=== PATIENT | female | born 1945 | race Caucasian/White ===

== ENCOUNTER 2025-04-12 14:40 | Emergency (ER) | payer MEDICARE, SELFPAY ==
[2025-04-12] VITALS (7 sets, daily range): BP systolic 163–199; BP diastolic 71–109; PULSE 71–76; RESP 16; TEMP 36.7; O2SAT 95–97; BMI 38.2
--- NOTE | 2025-04-12 15:06 | W.ED.GENADLT ---
HPI - General Adult General: Chief complaint: General Medical Stated complaint: congestion, n/d, dizzy Time Seen by Provider: 04/12/25 14:54 History of Present Illness: 79-year-old female presents emergency room complaining of sinus congestion and dizziness. Patient self diagnosed as having had diverticulitis few days ago and it is resolved now she has not been taking any antibiotics. She states for about 5 days that she had abdominal discomfort lower abdomen that she related as diverticulitis cramping-like discomfort she had resolution of this 3 days ago and but is still having some loose stools and diarrhea. She has not had any hematochezia melena hematemesis or coffee-ground emesis no dysuria urgency or frequency no fever. Blood pressure on arrival noted to be markedly elevated. Associated symptoms: Deny chest pain, dyspnea or rash Related Data Home Medications ?Medication ?Instructions ?Recorded ?Confirmed cholecalciferol (vitamin D3) 50 50 mcg PO DAILY 04/12/25 04/12/25 mcg (2,000 unit) capsule (Vitamin D3) ibuprofen 200 mg tablet (Advil) 600 mg PO Q6H PRN Fever Or Pain 04/12/25 04/12/25 simethicone 125 mg capsule (Gas 125 mg PO DAILY PRN 04/12/25 04/12/25 Relief Extra Strength) Gastrointestinal Spasms Or Cramping Previous Rx's ?Medication ?Instructions ?Recorded cefdinir 300 mg capsule 300 mg PO BID 10 days #20 caps 04/12/25 metronidazole 500 mg tablet 500 mg PO BID 10 days #20 tabs 04/12/25 Allergies Allergy/AdvReac Type Severity Reaction Status Date / Time Iodinated Contrast Media Allergy Severe ALGY-Anaphy Unverified 04/12/25 16:10 laxis Milk Containing Products Allergy Severe ADR-Nausea Verified 04/12/25 15:51 (Dairy) ciprofloxacin (From Cipro) Allergy Unknown Verified 04/12/25 14:49 erythromycin base Allergy Unknown Verified 04/12/25 14:49 lorazepam (From Ativan) Allergy Unknown Verified 04/12/25 14:49 milk Allergy ADR-Nausea Verified 04/12/25 15:51 Penicillins Allergy Unknown Verified 04/12/25 14:49 soy Allergy ADR-Nausea Verified 04/12/25 15:51 Sulfa (Sulfonamide Allergy Unknown Verified 04/12/25 14:49 Antibiotics) Review of Systems Const: Denies: fever(s) or chills Card: Denies: chest pain Resp: Denies: dyspnea GI: Denies: abdominal pain : Denies: dysuria, urinary frequency or urinary urgency Musc: Denies: neck pain or back pain Skin/Breast: Denies: rash Physical Exam Const: COMMON NORMALS: no acute distress GENERAL APPEARANCE: cooperative and comfortable ORIENTATION/CONSCIOUSNESS: Yes awake, Yes oriented to person, Yes oriented to place and Yes oriented to time HENMT: COMMON NORMALS: normocephalic, atraumatic and hearing grossly normal bilaterally HEAD & SCALP: normocephalic and atraumatic Resp: COMMON NORMALS: normal respiratory effort, No retractions, No use of accessory muscles and clear to auscultation bilaterally AUSCULTATION: clear to auscultation bilaterally Cardio: COMMON NORMALS: regular rate, regular rhythm and No murmurs present (Cardio) RATE: regular rate RHYTHM: regular rhythm GI: COMMON NORMALS: Soft to palpation and No hepatosplenomegaly present AUSCULTATION: Yes normoactive bowel sounds PALPATION: Yes Soft to palpation, No Tenderness to palpation present (GI), No Guarding due to palpation present (GI) and Yes No hepatosplenomegaly present Extremity: COMMON NORMALS: normal to inspection, capillary refill normal, no clubbing, cyanosis or edema, no calf tenderness and no pedal edema Neuro: SENSORIUM/ORIENTATION: Yes oriented to person, Yes oriented to place and Yes oriented to time Skin: COMMON NORMALS: no rashes or lesions noted GENERAL SKIN EXAM: no rashes or lesions noted Course Vital Signs: Vital signs: Vital Signs Temperature 98.1 F 04/12/25 14:44 Pulse Rate 71 04/12/25 17:08 Respiratory Rate 16 04/12/25 14:44 Blood Pressure 168/71 04/12/25 17:08 Pulse Oximetry 95 04/12/25 17:08 Oxygen Delivery Me thod Room Air 04/12/25 15:13 MDM - General Adult Medical Decision Making No leukocytosis CT shows acute diverticulitis. Will start her on cefdinir and metronidazole due to allergies to other more frequently use medication combinations for diverticulitis. This also should cover any sinus issues she was, concerned about that as well follow-up with your primary care doctor Medical Records I reviewed the patient's medical records. Lab Data I reviewed the patient's lab results. 04/12/25 15:30 04/12/25 15:30 Radiology Impressions Abdomen/Pelvis CT 04/12/25 15:53 IMPRESSION: 1. Acute sigmoid colon diverticulitis, as described above. 2. Small volume free fluid within the pelvis. 3. Diffuse colonic diverticulosis. 4. Chronic findings. Laboratory Results WBC 9.50 10^3/uL (3.29-11.43) 04/12/25 15:30 RBC 4.63 10^6/uL (3.85-5.65) 04/12/25 15:30 Hgb 14.60 g/dL (11.27-16.99) 04/12/25 15:30 Hct 42.5 % (36-47) 04/12/25 15:30 MCV 91.8 fl (85-98) 04/12/25 15:30 MCH 31.5 pg (27-33) 04/12/25 15:30 MCHC 34.4 g/dL (30-55) 04/12/25 15:30 RDW 12.0 % (12.1-15.1) L 04/12/25 15:30 Plt Count 264 10^3/cmm (157-399) 04/12/25 15:30 MPV 9.9 fL (7.4-10.4) 04/12/25 15:30 Neut % (Auto) 64.1 % 04/12/25 15:30 Lymph % (Auto) 24.2 % 04/12/25 15:30 Coal % (Auto) 9.6 % 04/12/25 15:30 Eos % (Auto) 1.1 % 04/12/25 15:30 Baso % (Auto) 0.8 % 04/12/25 15:30 Neut # (Auto) 6.09 10^3/uL (1.8-7.7) 04/12/25 15:30 Lymph # (Auto) 2.3 10^3/uL (0.8-4.8) 04/12/25 15:30 Coal # (Auto) 0.9 10^3/uL (0.2-0.9) 04/12/25 15:30 Eos # (Auto) 0.1 10^3/uL (0.0-0.8) 04/12/25 15:30 Baso # (Auto) 0.1 10^3/uL (0.0-0.1) 04/12/25 15:30 Nucleated RBC % (auto) 0 % 04/12/25 15:30 Nucleated RBCs # 0.0 /100WBC 04/12/25 15:30 Sodium 145 mmol/L (136-145) 04/12/25 15:30 Potassium 3.6 mmol/L (3.5-5.1) 04/12/25 15:30 Chloride 105 mmol/L (98-107) 04/12/25 15:30 Carbon Dioxide 25 mmol/L (22-29) 04/12/25 15:30 Anion Gap 18.6 (5-19) 04/12/25 15:30 BUN 8 mg/dL (8-23) 04/12/25 15:30 Creatinine 0.5 mg/dL (0.5-0.9) 04/12/25 15:30 GFR Calculation Not Reportable 04/12/25 15:30 Glucose 95 mg/dL (65-115) 04/12/25 15:30 Calculated Osmolality 298 mOsm/kg (285-295) H 04/12/25 15:30 Calcium 9.1 mg/dL (8.5-10.5) 04/12/25 15:30 Total Bilirubin 0.6 mg/dL (0.15-1.2) 04/12/25 15:30 AST 14 U/L (0-32) 04/12/25 15:30 ALT 14 U/L (0-33) 04/12/25 15:30 Alkaline Phosphatase 77 U/L (35-105) 04/12/25 15:30 Total Protein 7.5 g/dL (6.6-8.7) 04/12/25 15:30 Albumin 4.0 g/dL (3.5-5.2) 04/12/25 15:30 Globulin 3.5 g/dL (1.3-4.6) 04/12/25 15:30 Lipase 20 U/L (13-60) 04/12/25 15:30 Urine Color Yellow (Yellow) 04/12/25 15:10 Urine Appearance Clear (CLEAR) 04/12/25 15:10 Urine pH 6.0 (5-7) 04/12/25 15:10 Ur Specific [place] 1.006 (1.005-1.030) 04/12/25 15:10 Urine Protein Negative (Negative) 04/12/25 15:10 Urine Glucose (UA) Negative (Normal) 04/12/25 15:10 Urine Ketones Trace (Negative) 04/12/25 15:10 Urine Blood Negative (Negative) 04/12/25 15:10 Urine Nitrate Negative (Negative) 04/12/25 15:10 Urine Bilirubin Negative (Negative) 04/12/25 15:10 Urine Urobilinogen 0.2 mg/dL (Negative) 04/12/25 15:10 Ur Leukocyte Esterase Negative (Negative) 04/12/25 15:10 Urine RBC 0-2 /hpf (0-2) 04/12/25 15:10 Urine WBC 6-10 /hpf (0-5) 04/12/25 15:10 Ur Squamous Epith Cells 0-5 /hpf (0-5) 04/12/25 15:10 Amorphous Sediment Not Reportable 04/12/25 15:10 Urine Bacteria Trace /hpf (NONE) 04/12/25 15:10 Hyaline Casts 2.05 /lpf 04/12/25 15:10 All radiology interpretation(s) finalized by discharge Discharge Plan Discharge Patient Disposition: Home Clinical Impression: Diverticulitis Condition: Stable Prescriptions: New cefdinir 300 mg capsule 300 mg PO BID 10 Days Qty: 20 0RF metronidazole 500 mg tablet 500 mg PO BID 10 Days Qty: 20 0RF No Action simethicone [Gas Relief Extra Strength] 125 mg Capsule 125 mg PO DAILY PRN (Reason: Gastrointestinal Spasms Or Cramping) ibuprofen [Advil] 200 mg Tablet 600 mg PO Q6H PRN (Reason: Fever Or Pain) cholecalciferol (vitamin D3) [Vitamin D3] 50 mcg (2,000 unit) Capsule 50 mcg PO DAILY Discharge Orders: Discharge ED (Routine); Ordered 04/12/25 Ordered By: Liborio Adams Discharge Diet: Advance as tolerated Discharge Activity: Increase activity as tolerated Patient Instructions: Opioid Safety, Pain Management Activity Restrictions/Additional Instructions: Thank you for choosing [facility] for your healthcare needs today. It is very important that you follow up as instructed or that you return to the Emergency Department should you have concerns or if your condition changes or worsens in any way. You were seen in the emergency room for abdominal pain with diarrhea. CT shows that you have mild acute diverticulitis. Will start you on cefdinir 300 mg 1 pill twice a day as well as metronidazole 500 mg twice a day. Follow-up with your primary care provider. Print Language: Armenian Coding Level of Care Code ED Clinical Program Manager for Raghu López
[2025-04-12 15:18] LABS: Bilirubin Urine Negative (Negative); Blood Urine Negative (Negative); Glucose Urine UA Negative (Normal); Ketones Urine Trace (Negative); Leukocyte Esterase Urine Negative (Negative); Nitrate Urine Negative (Negative); Protein Urine Negative (Negative); Specific Gravity, Urine 1.006 (1.005-1.030); Urine Appearance Clear (CLEAR); Urine Color Yellow (Yellow); Urobilinogen Urine 0.2 mg/dL (Negative)
[2025-04-12 15:23] LABS: Add Urine Microscopic? YES; Bacteria Urine Trace /hpf; Hyaline Casts Urine 2.05 /lpf; RBC Urine 0-2 /hpf (0-2); Squamous Epithelial Cell Urine 0-5 /hpf (0-5)
[2025-04-12 15:28] LABS: Add Urine Culture? No
[2025-04-12 15:40] LABS: Basophils # 0.1 10^3/uL (0.0-0.1); Basophils % 0.8 %; Eosinophils # 0.1 10^3/uL (0.0-0.8); Eosinophils % 1.1 %; Hematocrit 42.5 % (36-47); Lymphocytes # 2.3 10^3/uL (0.8-4.8); Lymphocytes % 24.2 %; Mean Corpuscular HGB Conc 34.4 g/dL (30-55); Mean Corpuscular Hemoglobin 31.5 pg (27-33); Mean Corpuscular Volume 91.8 fl (85-98); Mean Platelet Volume 9.9 fL (7.4-10.4); Monocytes # 0.9 10^3/uL (0.2-0.9); Monocytes % 9.6 %; Neutrophils # 6.09 10^3/uL (1.8-7.7); Neutrophils % 64.1 %; Nucleated Red Blood Cells % 0 %; Platelet Count 264 10^3/cmm (157-399); Red Blood Count 4.63 10^6/uL (3.85-5.65)
[2025-04-12] MEDS: labetalol 5 mg/mL SDV 20mL 10 MG IVP (15:40)
[2025-04-12] MEDS: hyDRALAzine 20 mg/mL INJ 1 mL 10 MG IVP (15:40)
--- NOTE | 2025-04-12 15:53 | CTR_ITS ---
PROCEDURE INFORMATION: Exam: CT Abdomen And Pelvis Without Contrast Exam date and time: 04/12/2025 4:05 PM Age: 79 years old Clinical indication: Abdominal pain; Generalized; Prior surgery; Surgery date: 6+ months; Surgery type: Gb, appy, partial hysterectomy; Additional info: Abd pain TECHNIQUE: Imaging protocol: Computed tomography of the abdomen and pelvis without contrast. Radiation optimization: All CT scans at this facility use at least one of these dose optimization techniques: automated exposure control; mA and/or kV adjustment per patient size (includes targeted exams where dose is matched to clinical indication); or iterative reconstruction. COMPARISON: No relevant prior studies available. RADIATION DOSE METRICS: Total DLP (mGy-cm): 943.33 FINDINGS: Liver: Liver appears heterogeneous. Nonspecific finding suggesting potential hepatic parenchymal disease. Consider correlation with liver function tests. Gallbladder and biliary ducts: The gallbladder has been surgically removed. Surgical clips identified in the gallbladder fossa. No evidence for biliary dilatation. Pancreas: Unremarkable. Spleen: Unremarkable. No splenomegaly. Adrenal glands: Normal. No mass. Kidneys and ureters: Unremarkable. No hydronephrosis or calculi. Stomach and bowel: Findings typical of acute diverticulitis demonstrated within the sigmoid colon. Adjacent edema is demonstrated. No extraluminal gas or well defined abscess identified. Malignancy not excluded. Diffuse colonic diverticulosis is demonstrated. Appendix: The visualized appendix appears unremarkable. Intraperitoneal space: Moderate left-sided pelvic mesenteric edema. Small volume of intraperitoneal fluid identified in the bilateral pelvis. Vasculature: Calcifications in the pelvis, most compatible with phleboliths. Lymph nodes: No enlarged lymph nodes. Urinary bladder: Urinary bladder appears small in size, limiting further assessment. Reproductive: The uterus is not present. Bones/joints: Diffusely decreased bone density. Dextroscoliosis of the lumbar spine is demonstrated. Moderate to severe bony degenerative changes involving the lumbar spine region. Disc and osteophyte complexes with moderate to severe central canal and foraminal narrowing within the lumbar spine. Bony structures appear otherwise unremarkable. Soft tissues: Unremarkable. Other findings: This study is limited by patient's body habitus. CT/CT abdomen pelvis wo con [id number] IMPRESSION: 1. Acute sigmoid colon diverticulitis, as described above. 2. Small volume free fluid within the pelvis. 3. Diffuse colonic diverticulosis. 4. Chronic findings.
[2025-04-12 15:55] LABS: Alanine Aminotransferase 14 U/L (0-33); Alkaline Phosphatase 77 U/L (35-105); Anion Gap 18.6 (5-19); Aspartate Amino Transferase 14 U/L (0-32); Blood Urea Nitrogen 8 mg/dL (8-23); Calcium 9.1 mg/dL (8.5-10.5); Carbon Dioxide 25 mmol/L (22-29); Chloride 105 mmol/L (98-107); Creatinine Clr Calc Pharmacy 68.1279; Globulin 3.5 g/dL (1.3-4.6); Glucose 95 mg/dL (65-115); Lipase 20 U/L (13-60); Osmolality Calculated 298 mOsm/kg (285-295); Potassium 3.6 mmol/L (3.5-5.1); Sodium 145 mmol/L (136-145); Total Bilirubin 0.6 mg/dL (0.15-1.2); Total Protein 7.5 g/dL (6.6-8.7)
== END 2025-04-12 17:09 | disposition home or self-care (01) ==
PROVIDERS: Emergency Provider Family Medicine
DX: K57.32 Diverticulitis of large intestine without perforation or abscess without bleeding (principal); R09.81 Nasal congestion; Z88.1 Allergy status to other antibiotic agents; Z88.8 Allergy status to other drugs, medicaments and biological substances; Z91.041 Radiographic dye allergy status
CPT/HCPCS: 36415; 74176; 80053; 81001; 83690; 85025; 96374; 96375; 99285; J0360; J3490

== ENCOUNTER 2025-10-10 23:54 | Emergency (ER) | payer MEDICARE, SELFPAY ==
[2025-10-11 00:12] VITALS: BP 194/149; PULSE 145; RESP 18; TEMP 36.7; O2SAT 98; BMI 37.1
[2025-10-11 00:25] VITALS: BP 189/151; PULSE 131; RESP 19; O2SAT 97
--- NOTE | 2025-10-11 00:43 | XRR_ITS ---
PROCEDURE INFORMATION: Exam: XR Chest Exam date and time: 10/11/2025 12:47 AM Age: 80 years old Clinical indication: Other: Tachycardia TECHNIQUE: Imaging protocol: Radiologic exam of the chest. Views: 1 view. COMPARISON: CT abdomen pelvis con [id number] 04/12/2025 4:05 PM FINDINGS: Lungs: Unremarkable. No consolidation. Pleural spaces: Unremarkable. No pleural effusion. No pneumothorax. Heart/Mediastinum: Unremarkable. No cardiomegaly. Bones/joints: Unremarkable. XR/XR chest 1V portable [id number] IMPRESSION: No acute findings.
--- NOTE | 2025-10-11 00:43 | CTR_ITS ---
PROCEDURE INFORMATION: Exam: CT Head Without Contrast Exam date and time: 10/11/2025 12:58 AM Age: 80 years old Clinical indication: Numbness / parasthesia; Left; Additional info: L ue paresthesia TECHNIQUE: Imaging protocol: Computed tomography of the head without contrast. Radiation optimization: All CT scans at this facility use at least one of these dose optimization techniques: automated exposure control; mA and/or kV adjustment per patient size (includes targeted exams where dose is matched to clinical indication); or iterative reconstruction. COMPARISON: No relevant prior studies available. RADIATION DOSE METRICS: Total DLP (mGy-cm): 1094.52 FINDINGS: Brain: No acute intracranial hemorrhage. No midline shift or mass effect. No acute territorial infarct. Global age-related cerebral atrophy. Chronic, age related microangiopathy, consistent periventricular and subcortical white matter hypoattenuation. Cerebral ventricles: No ventriculomegaly. Paranasal sinuses: Visualized sinuses are unremarkable. No fluid levels. Mastoid air cells: Visualized mastoid air cells are well aerated. Bones: Unremarkable. No acute fracture. Soft tissues: Unremarkable. CT/CT head wo con* [id number] IMPRESSION: No acute intracranial hemorrhage. No midline shift or mass effect.
--- NOTE | 2025-10-11 00:44 | ECG_ITS ---
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 [email or web address]
[2025-10-11 00:50] LABS: Hematocrit 44.2 % (36-47); Hemoglobin 15.50 g/dL (11.27-16.99); Mean Corpuscular HGB Conc 35.1 g/dL (30-55); Mean Corpuscular Hemoglobin 33.0 pg (27-33); Mean Corpuscular Volume 94.2 fl (85-98); Nucleated Red Blood Cells % 0 %; Platelet Count 289 10^3/cmm (157-399); Red Blood Count 4.69 10^6/uL (3.85-5.65); White Blood Count 11.37 10^3/uL (3.29-11.43)
[2025-10-11] MEDS: digoxin 250 mcg/ml INJ 2 mL 125 MCG IVP ×2 (00:50→01:26)
[2025-10-11] MEDS: metoprolol tartrate 1 mg/1 mL SDV 5 mL 5 MG IVP ×2 (00:50→01:26)
[2025-10-11 00:52] LABS: Glucose Urine UA Negative (Normal); Nitrate Urine Negative (Negative); Specific Gravity, Urine 1.006 (1.005-1.030)
--- NOTE | 2025-10-11 00:53 | W.ED.EXTPRO ---
HPI - Extremity Problem General: Chief complaint: Extremity Problem,Nontraumatic Stated complaint: LT arm Numbness Time Seen by Provider: 10/11/25 00:04 History of Present Illness: Patient is a 80-year-old female presenting with complaints of left ear pain, neck pain, and intermittent numbness in her arm for the past 2 days. She reports that the numbness comes and goes, but she maintains full range of motion and functionality of the arm during these episodes. She denies any associated headache but does report sinus pain. Patient also notes an irregular heartbeat that she has experienced intermittently for approximately 20 years. She states that her heart rate at home typically ranges from 98-102 bpm, and the arrhythmia can last from one to three days at a time. The patient reports that her arrhythmia can be triggered by sneezing or reaching up with her arm, and sometimes resolves when she gets angry or with rest. She has a remote history of what was initially diagnosed as a TIA approximately 30 years ago, though she reports a subsequent physician suggested it may have been a migraine instead. Related Data Home Medications ?Medication ?Instructions ?Recorded ?Confirmed cholecalciferol (vitamin D3) 50 50 mcg PO DAILY 04/12/25 04/27/25 mcg (2,000 unit) capsule (Vitamin D3) ibuprofen 200 mg tablet (Advil) 600 mg PO Q6H PRN Fever Or Pain 04/12/25 04/27/25 simethicone 125 mg capsule (Gas 125 mg PO DAILY PRN 04/12/25 04/27/25 Relief Extra Strength) Gastrointestinal Spasms Or Cramping Previous Rx's ?Medication ?Instructions ?Recorded doxycycline hyclate 100 mg capsule 100 mg PO BID 7 days #14 caps 04/23/25 methylprednisolone 4 mg tablets in See Rx Instructions PO .COMPLEX 10/11/25 a dose pack (Medrol (Rob)) #21 ea metoprolol tartrate 50 mg tablet 50 mg PO Q12H #60 tabs 10/11/25 Allergies Allergy/AdvReac Type Severity Reaction Status Date / Time Iodinated Contrast Media Allergy Severe ALGY-Anaphy Verified 10/11/25 00:18 laxis Milk Containing Products Allergy Severe ADR-Nausea Verified 10/11/25 00:18 (Dairy) ciprofloxacin (From Cipro) Allergy Unknown Verified 10/11/25 00:18 erythromycin base Allergy Unknown Verified 10/11/25 00:18 lorazepam (From Ativan) Allergy Unknown Verified 10/11/25 00:18 milk Allergy ADR-Nausea Verified 10/11/25 00:18 Penicillins Allergy Unknown Verified 10/11/25 00:18 soy Allergy ADR-Nausea Verified 10/11/25 00:18 Sulfa (Sulfonamide Allergy Unknown Verified 10/11/25 00:18 Antibiotics) PFSH ED PFSH: Social History Smoking and tobacco/nicotine status: unknown if used tobacco/nicotine Physical Exam Const: COMMON NORMALS: no acute distress GENERAL APPEARANCE: cooperative; not ill appearing and not frail appearing HENMT: COMMON NORMALS: normocephalic, atraumatic and Normal external nose present HEAD & SCALP: normocephalic and atraumatic FACE & SINUS: normal facial exam and face symmetric NOSE: Normal external nose present Eye: COMMON NORMALS: Equal, round and reactive pupils present and EOMs intact bilaterally PUPIL: Yes Equal, round and reactive pupils present Neck/C-Spine: GENERAL: Yes trachea midline OTHER: Mild cervical spine tenderness. Negative Spurling's test. No deformity. Some left-sided paraspinal musculature tenderness Chest: CHEST: Yes Symmetrical chest wall rise Resp: COMMON NORMALS: normal respiratory effort, No retractions, No use of accessory muscles and clear to auscultation bilaterally AUSCULTATION: clear to auscultation bilaterally Cardio: RATE: tachycardic RHYTHM: abnormal rhythm irregularly irregular GI: COMMON NORMALS: Normal to inspection, nondistended, normoactive bowel sounds present Extremity: COMMON NORMALS: no pedal edema Neuro: ISAIAH COMA SCALE: document GCS findings Isaiah coma scale eye opening: Spontaneous Bucklin coma scale verbal response: Orientated Isaiah coma scale motor response: Obey commands Isaiah coma scale total score: 15 SENSORY EXAM: Yes extremities (intact) Psych: COMMON NORMALS: speech normal SPEECH: Yes normal speech Skin: COMMON NORMALS: no rashes or lesions noted GENERAL SKIN EXAM: no rashes or lesions noted Course Vital Signs: Vital signs: Vital Signs Temperature 98.0 F 10/11/25 02:27 Pulse Rate 98 10/11/25 02:27 Respiratory Rate 25 H 10/11/25 02:27 Blood Pressure 162/122 10/11/25 02:27 Pulse Oximetry 96 10/11/25 02:27 Oxygen Delivery Me thod Room Air 10/11/25 00:12 MDM - Extremity (Nontraumatic) Medical Decision Making Patient is tachycardic and hypertensive. By history, she has chronic paroxysmal atrial fibrillation. She denies chest pain. She does have some intermittent palpitations. Her main complaint is intermittent left sided paresthesia. It is only to the upper extremity, and only intermittent. Sensation is normal on exam currently. She does have some neck pain. She has normal range of motion in her neck however. No significant headache. No other signs of arterial dissection. Chest x-ray is negative. Head CT is negative. Patient was given 2 doses of 5 mg of metoprolol IV, 125 mcg digoxin. Heart rate is now 100. Still in A-fib. Blood pressure still elevated. Rate more controlled now. Rate is in the 80s. She is still hypertensive. Likely cervical radiculopathy. She will be treated with a tapering dose of steroid for this. Will continue metoprolol for rate control. She has not had medication for her atrial fibrillation at all. She does take aspirin daily and will continue full dose aspirin. Will ask case management to acquire both PCP and cardiology follow-ups for her. She knows to return for worsening symptoms. Stable for discharge. Lab Data 10/11/25 00:18 10/11/25 00:18 Radiology Impressions Chest X-Ray 10/11/25 00:43 IMPRESSION: No acute findings. Head CT 10/11/25 00:43 IMPRESSION: No acute intracranial hemorrhage. No midline shift or mass effect. Laboratory Results WBC 11.37 10^3/uL (3.29-11.43) 10/11/25 00:18 RBC 4.69 10^6/uL (3.85-5.65) 10/11/25 00:18 Hgb 15.50 g/dL (11.27-16.99) 10/11/25 00:18 Hct 44.2 % (36-47) 10/11/25 00:18 MCV 94.2 fl (85-98) 10/11/25 00:18 MCH 33.0 pg (27-33) 10/11/25 00:18 MCHC 35.1 g/dL (30-55) 10/11/25 00:18 RDW 12.7 % (12.1-15.1) 10/11/25 00:18 Plt Count 289 10^3/cmm (157-399) 10/11/25 00:18 MPV 10.2 fL (7.4-10.4) 10/11/25 00:18 Neut % (Auto) 53.1 % 10/11/25 00:18 Lymph % (Auto) 35.3 % 10/11/25 00:18 Aiken % (Auto) 9.5 % 10/11/25 00:18 Eos % (Auto) 1.3 % 10/11/25 00:18 Baso % (Auto) 0.5 % 10/11/25 00:18 Neut # (Auto) 6.04 10^3/uL (1.8-7.7) 10/11/25 00:18 Lymph # (Auto) 4.0 10^3/uL (0.8-4.8) 10/11/25 00:18 Aiken # (Auto) 1.1 10^3/uL (0.2-0.9) H 10/11/25 00:18 Eos # (Auto) 0.2 10^3/uL (0.0-0.8) 10/11/25 00:18 Baso # (Auto) 0.1 10^3/uL (0.0-0.1) 10/11/25 00:18 Nucleated RBC % (auto) 0 % 10/11/25 00:18 Nucleated RBCs # 0.0 /100WBC 10/11/25 00:18 PT 12.80 SECONDS (12.1-14.9) 10/11/25 00:18 INR 0.90 (0.8-1.2) 10/11/25 00:18 APTT 29.3 SECONDS (23.9-36.7) 10/11/25 00:18 Sodium 139 mmol/L (136-145) 10/11/25 00:18 Potassium 4.3 mmol/L (3.5-5.1) 10/11/25 00:18 Chloride 102 mmol/L (98-107) 10/11/25 00:18 Carbon Dioxide 29 mmol/L (22-29) 10/11/25 00:18 Anion Gap 12.3 (5-19) 10/11/25 00:18 BUN 21 mg/dL (8-23) 10/11/25 00:18 Creatinine 0.7 mg/dL (0.5-0.9) 10/11/25 00:18 GFR Calculation Not Reportable 10/11/25 00:18 Glucose 104 mg/dL (65-115) 10/11/25 00:18 Calculated Osmolality 291 mOsm/kg (285-295) 10/11/25 00:18 Calcium 9.5 mg/dL (8.5-10.5) 10/11/25 00:18 Magnesium 2.1 mg/dL (1.7-2.3) 10/11/25 00:18 Total Bilirubin 0.3 mg/dL (0.15-1.2) 10/11/25 00:18 AST 21 U/L (0-32) 10/11/25:18 ALT 22 U/L (0-33) 10/11/25 00:18 Alkaline Phosphatase 87 U/L (35-105) 10/11/25 00:18 Troponin T Baseline < 6 ng/L (0-10) 10/11/25 00:18 Troponin T 120 Minute < 6.0 ng/L (0-10) 10/11/25 02:02 Delta Troponin T 0 ABS# (0-10) 10/11/25 02:02 NT-Pro-B Natriuret Pep 547 pg/mL (0-450) H 10/11/25 00:18 Total Protein 7.1 g/dL (6.6-8.7) 10/11/25 00:18 Albumin 4.3 g/dL (3.5-5.2) 10/11/25 00:18 Globulin 2.8 g/dL (1.3-4.6) 10/11/25 00:18 Urine Color Yellow (Yellow) 10/11/25 00:18 Urine Appearance Clear (CLEAR) 10/11/25 00:18 Urine pH 5.5 (5-7) 10/11/25:18 Ur Specific Hardy 1.006 (1.005-1.030) 10/11/25 00:18 Urine Protein Negative (Negative) 10/11/25 00:18 Urine Glucose (UA) Negative (Normal) 10/11/25 00:18 Urine Ketones Negative (Negative) 10/11/25 00:18 Urine Blood Trace (Negative) A 10/11/25 00:18 Urine Nitrate Negative (Negative) 10/11/25 00:18 Urine Bilirubin Negative (Negative) 10/11/25 00:18 Urine Urobilinogen 0.2 mg/dL (Negative) 10/11/25 00:18 Ur Leukocyte Esterase 1+ (Negative) A 10/11/25 00:18 Urine RBC 0-2 /hpf (0-2) 10/11/25 00:18 Urine WBC 11-20 /hpf (0-5) H 10/11/25 00:18 Ur Squamous Epith Cells 0-5 /hpf (0-5) 10/11/25 00:18 Amorphous Sediment Not Reportable 10/11/25 00:18 Urine Bacteria None seen /hpf (NONE) 10/11/25 00:18 Hyaline Casts 0-4 /lpf H 10/11/25 00:18 All radiology interpretation(s) finalized by discharge EKG Data EKG 1: Computer generated interpretation: EKG time 0009 read 00 1 2. Atrial fibrillation, rate 125. Left axis. QTc 375. No definite ST wave changes. Discharge Plan Discharge Patient Disposition: Home Clinical Impression: Cervical radiculitis, Atrial fibrillation Condition: Stable Prescriptions: New methylprednisolone [Medrol (Rob)] 4 mg tablets,dose pack See Rx Instructions .ROUTE .COMPLEX Qty: 21 0RF Rx Instructions: orally per package directions metoprolol tartrate 50 mg tablet 50 mg PO Q12H Qty: 60 0RF No Action doxycycline hyclate 100 mg capsule 100 mg PO BID 7 Days Qty: 14 0RF simethicone [Gas Relief Extra Strength] 125 mg Capsule 125 mg PO DAILY PRN (Reason: Gastrointestinal Spasms Or Cramping) ibuprofen [Advil] 200 mg Tablet 600 mg PO Q6H PRN (Reason: Fever Or Pain) cholecalciferol (vitamin D3) [Vitamin D3] 50 mcg (2,000 unit) Capsule 50 mcg PO DAILY Discharge Orders: Discharge ED (Routine); Ordered 10/11/25 Ordered By: Adithya Rice Patient Instructions: Cervical Radiculopathy (ED), Opioid Safety, Pain Management, Patient Portal & Adriane Instructions Activity Restrictions/Additional Instructions: Medication as directed. Case management will contact you regarding primary care and cardiology follow-up appointments later this week. Return for weakness, worsening numbness, vision changes, speech problems, any other concerning symptoms. Continue with full dose aspirin daily. Print Language: Bhutanese Coding Level of Care Code ED Channel Supervisor for Raghu López
[2025-10-11 00:57] VITALS: BP 165/118; PULSE 135; RESP 18; O2SAT 98
[2025-10-11 00:57] LABS: Add Urine Microscopic? YES
[2025-10-11 01:03] LABS: INR 0.90 (0.8-1.2); Prothrombin Time 12.80 SECONDS (12.1-14.9)
[2025-10-11 01:04] LABS: Partial Thromboplastin Time 29.3 SECONDS (23.9-36.7)
[2025-10-11 01:15] LABS: Troponin(5th) Baseline < 6 ng/L (0-10)
[2025-10-11 01:22] LABS: Alanine Aminotransferase 22 U/L (0-33); Albumin Level 4.3 g/dL (3.5-5.2); Alkaline Phosphatase 87 U/L (35-105); Aspartate Amino Transferase 21 U/L (0-32); Blood Urea Nitrogen 21 mg/dL (8-23); Calcium 9.5 mg/dL (8.5-10.5); Carbon Dioxide 29 mmol/L (22-29); Chloride 102 mmol/L (98-107); Globulin 2.8 g/dL (1.3-4.6); Glucose 104 mg/dL (65-115); Magnesium 2.1 mg/dL (1.7-2.3); NT Pro B Type Natriuretic Pept 547 pg/mL (0-450); Osmolality Calculated 291 mOsm/kg (285-295); Sodium 139 mmol/L (136-145); Total Protein 7.1 g/dL (6.6-8.7)
[2025-10-11 01:26] LABS: Anion Gap 12.3 (5-19); Potassium 4.3 mmol/L (3.5-5.1)
[2025-10-11 01:30] VITALS: BP 168/111; PULSE 100; RESP 17; O2SAT 98
[2025-10-11] MEDS: methylPREDNISolone sod succ 125 mg/2 mL INJ 80 MG IVP (02:07)
[2025-10-11 02:09] VITALS: BP 171/105; PULSE 87; RESP 25; O2SAT 97
[2025-10-11 02:27] VITALS: BP 162/122; PULSE 98; RESP 25; TEMP 36.7; O2SAT 96
--- NOTE | 2025-10-12 06:57 | DCPLANNER ---
I sent a follow up for pcp and cardiology
== END 2025-10-11 02:34 | disposition home or self-care (01) ==
PROVIDERS: Emergency Provider Emergency Medicine
DX: M54.12 Radiculopathy, cervical region (principal); I48.91 Unspecified atrial fibrillation
CPT/HCPCS: 36415; 70450; 71045; 80053; 81001; 83735; 83880; 84484; 85025; 85610; 85730; 93005; 96374; 96375; 96376; 99285; J1160; J2919; J3490